=== PATIENT | female | born 1980 | race American Indian/Alaskan Native ===

== ENCOUNTER 2021-01-20 13:55 | Outpatient (CLI) | payer MEDICAID ==
--- NOTE | 2021-01-22 10:18 | Magnetic Resonance Report ---
MRI BREAST BILATERAL WITH AND WITHOUT CONTRAST, 01/20/2021 CLINICAL INFORMATION / INDICATION: MALIGNANT NEOPLASM OF UPPER OUTER QUAD OF LT BREAST. TECHNIQUE: Axial T1 and T2-weighted fat sat images were obtained precontrast. Gadolinium-based contra st was injected intravenously and serial axial T1 weighted images with fat saturation were obtained. 3-D MIP projections, kinetic analysis, and subtraction imaging were utilized to evaluate. A dedicated 8-channel breast coil was used for image acquisition. COMPARISON: Diagnostic left tomograms from 12/29/2020 and 12/03/2019 FINDINGS: BREAST DENSITY: Heterogeneously dense. BACKGROUND ENHANCEMENT: High level background enhancement within both breasts. RIGHT BREAST: No dominant mass or suspicious area of enhancement in the right breast. LEFT BREAST: Suspicious enhancement is noted anteriorly along the left breast in the upper outer quad rant at the site of previous biopsy and the previously seen suspicious calcifications. The area of qu estionable enhancement measures 7.2 x 6.9 mm in this location on image 508 of the axial postcontrast series. The enhancement is located 2.7 cm from the nipple, 9.2 cm from the chest wall and 1.7 cm from the nearest skin surface, located laterally. A previously biopsied mass located anteriorly along the left breast in the 7:00 position also suspiciously enhances and measures 1.0 x 1.0 cm on image 448 o f the postcontrast axial series. The mass is located 9.3 cm from the chest wall, 1.2 cm from the nipp le and 1.4 cm from the nearest skin surface, located medially. No other mass or suspicious area of en hancement is identified. AXILLAE: No pathologically enlarged axillary lymph nodes. ADDITIONAL FINDINGS: Limited imaging of the thorax and upper abdomen demonstrates no focal abnormalit y. IMPRESSION: 1. MRI evidence of multifocal, multicentric left breast cancer as above. Please correlate with the pa thology reports from the previously performed biopsies. 2. No MRI evidence of malignancy in the right breast. Follow up recommendation: Surgical consult BI-RADS Category 6: Known Biopsy-Proven Malignancy. Signer Name: Chadwick Leigh MD Signed: 01/22/2021 10:14 AM Workstation Name: [facility]
== END 2021-01-20 13:56 | disposition home or self-care (01) ==
LOC: SPVIMAG 13:55
PROVIDERS: ATTEND Surgery
DX: C50.412 Malignant neoplasm of upper-outer quadrant of left female breast (principal)
CPT/HCPCS: A9575; C8908; 77049

== ENCOUNTER 2021-02-13 06:59 | Day surgery (SDC) | payer MEDICAID ==
[2021-02-03 10:56] LABS: Hematocrit 35.6 % (30.3-42.9); Hemoglobin 12.2 gm/dl (10.1-14.3); Mean Corpuscular HGB Conc 34 % (30-34); Mean Corpuscular Volume 79 fl (79-97); Platelet Count 304 K/mm3 (140-440); Red Cell Distribution Width 15.1 % (13.2-15.2)
--- NOTE | 2021-02-03 12:35 | Anesthesia Consultation ---
Anesthesia Consult and Med Hx Date of service: 02/13/21 - Airway Anesthetic Teeth Evaluation: Good ROM Head & Neck: Adequate Mental/Hyoid Distance: Adequate Mallampati Class: Class II Intubation Access Assessment: Good - Pre-Operative Health Status ASA Pre-Surgery Classification: ASA3 Proposed Anesthetic Plan: General Nerve Block: ES/PECS - Pulmonary Hx Respiratory Symptoms: No (+2FS) - Central Nervous System Hx Seizures: Yes (Last one a month ago) - Hematic Hx Sickle Cell Disease: No - Other Systems Hx Alcohol Use: No Hx Substance Use: No Hx Cancer: Yes (Left breast) - Additional Comments Anesthesia Medical History Comments: Jehova's Witness-no blood. Mother present
[~2021-02-13 06:59] MED LIST: ACETAMINOPHEN 500 MG TAB PO SCH; CELECOXIB 200 MG CAP PO NR; GABAPENTIN 300 MG CAP PO NR; LACTATED RINGERS 1,000 ML IV SCH; MIDAZOLAM 2 MG/2 ML INJ IV NR; SCOPOLAMINE TRANSDERMAL PATCH 72 HR TD NR; ceFAZolin/STERILE WATER 2 GM/20 ML SYRINGE IV NR; fentaNYL 100 MCG/2 ML INJ IV PRN
--- NOTE | 2021-02-13 07:23 | Anesthesia Day of Surgery ---
Anesthesia Day of Surgery - Day of Surgery Patient Examined: Yes Patient H&P Reviewed: Yes Patient is NPO: Yes
[2021-02-13] MEDS ORDERED: dexAMETHasone 4 MG/ML VIAL ONE (07:37)
[2021-02-13] MEDS ORDERED: BUPIVACAINE-EPINEPHRINE/PF 0.25%-1:200,000 (30 ML) VIAL INFILTRATI ONE (07:37)
[2021-02-13] MEDS ORDERED: LIDOCAINE (1%) 10 MG/1 ML VIAL 20 ML MDV ONE (07:37)
[2021-02-13] MEDS ORDERED: oxyCODONE /ACETAMINOPHEN 5-325MG TAB PO PRN (08:00)
[2021-02-13] MEDS ORDERED: ONDANSETRON 4 MG/2 ML INJ IV PRN (08:00)
[2021-02-13] MEDS ORDERED: propofoL 200 MG/20 ML VIAL IV ONE ×2 (08:21→10:42)
--- NOTE | 2021-02-13 08:47 | Mammography Report ---
MAMMOGRAPHIC GUIDED LEFT BREAST NEEDLE LOCALIZATION, 02/13/2021 CLINICAL INFORMATION / INDICATION: DCIS. COMPARISON: 12/29/2020 PROCEDURE: Risks, benefits and indications to the procedure were discussed with the patient. The patient agreed to proceed with both verbal and written consent. A timeout procedure was performed with 2 patient radha ntifiers. The breast was prepped with betadine in the usual sterile fashion. Approximately 5 cc of Lidocaine 1% was used for local anesthesia. Under direct digital mammographic guidance, a localization wire was p laced in satisfactory position with distal tip traversing the targeted lesion. Post-biopsy mammogram confirms satisfactory positioning of the localization wire. The wire was secured to the skin with a s terile dressing. The patient tolerated procedure without difficulty. No complications were encountered. IMPRESSION: 1. Satisfactory mammographic guided wire localization of the left breast. Signer Name: Yves Goodman Jr, MD Signed: 02/13/2021 8:43 AM Workstation Name: [id number]
[2021-02-13] MEDS ORDERED: ceFAZolin 1 GM VIAL ONE (10:02)
[2021-02-13] MEDS ORDERED: WATER FOR IRRIG STERILE 1,500 ML BOTTLE IR ONE (10:19)
[2021-02-13] MEDS ORDERED: ONDANSETRON 4 MG/2 ML INJ ONE (10:36)
[2021-02-13] MEDS ORDERED: dexAMETHasone 20 MG/5 ML VIAL ONE (10:37)
[2021-02-13] MEDS ORDERED: LIDOCAINE MPF (2%) 20 MG/1 ML VIAL 5 ML ONE (10:37)
[2021-02-13] MEDS ORDERED: GLYCOPYRROLATE 0.4 MG/2 ML INJ ONE (10:40)
[2021-02-13] MEDS ORDERED: NEOSTIGMINE 10MG/10 ML INJ MDV ONE (10:40)
--- NOTE | 2021-02-13 10:59 | Short Stay Summary ---
Short Stay Documentation Date of service: 02/13/21 - History H&P: obtained from office - Allergies and Medications Current Medications: Allergies No Known Allergies Allergy (Verified 02/02/21 13:07) Home Medications Medication Instructions Recorded Confirmed Last Taken Type Brivaracetam [Briviact] 100 mg PO BID 02/02/21 02/02/21 02/13/21 04:30 History Lacosamide [Vimpat] 200 mg PO BID 02/02/21 02/02/21 02/13/21 04:30 History Ibuprofen [Motrin 800 MG tab] 800 mg PO Q8HR PRN #12 tablet 02/13/21 Unknown Rx Active Medications Acetaminophen (Acetaminophen 500 Mg Tab) 1,000 mg PO PREOP EDENILSON Stop: 02/13/21 21:00 Last Admin: 02/13/21 09:00 Dose: 1,000 mg Documented by: Cefazolin Sodium (Cefazolin/Sterile Water 2 Gm/20 Ml Syringe) 2 gm IV PREOP NR Stop: 02/13/21 23:00 Celecoxib (Celecoxib 200 Mg Cap) 200 mg PO PREOP NR Stop: 02/13/21 21:00 Last Admin: 02/13/21 09:00 Dose: 200 mg Documented by: Fentanyl (Fentanyl 100 Mcg/2 Ml Inj) 100 mcg IV ONCE PRN PRN Reason: sedation for nerve block Stop: 02/13/21 21:00 Last Admin: 02/13/21 09:13 Dose: 100 mcg Documented by: Fentanyl (Fentanyl 100 Mcg/2 Ml Inj) 50 mcg IV Q5MIN PRN PRN Reason: Pain , Severe (7-10) Stop: 02/13/21 18:00 Gabapentin (Gabapentin 300 Mg Cap) 300 mg PO PREOP NR Stop: 02/13/21 21:00 Last Admin: 02/13/21 09:00 Dose: 300 mg Documented by: Lactated Ringer's (Lactated Ringers) 1,000 mls @ 100 mls/hr IV DIRECT EDENILSON Stop: 02/13/21 23:59 Last Admin: 02/13/21 09:10 Dose: 100 mls/hr Documented by: Midazolam HCl (Midazolam 2 Mg/2 Ml Inj) 2 mg IV PREOP NR Stop: 02/13/21 21:00 Last Admin: 02/13/21 09:13 Dose: 2 mg Documented by: Ondansetron HCl (Ondansetron 4 Mg/2 Ml Inj) 4 mg IV ONCE PRN PRN Reason: Nausea And Vomiting Stop: 02/13/21 18:00 Oxycodone/Acetaminophen (Oxycodone /Acetaminophen 5-325mg Tab) 1 tab PO ONCE PRN PRN Reason: Pain, Moderate (4-6) Stop: 02/13/21 18:00 Scopolamine (Scopolamine Transdermal Patch 72 Hr) 1 each TD PREOP NR Stop: 02/13/21 21:00 Last Admin: 02/13/21 09:00 Dose: 1 each Documented by: - Brief post op/procedure progress note Date of procedure: 02/13/21 Pre-op diagnosis: Left breast cancer upper outer quadrant Post-op diagnosis: same Procedure: Left needle localization partial mastectomy of the UOQ Anesthesia: GETA Findings: wire and clip present Surgeon: EMMA SAMPSON Estimated blood loss: minimal Pathology: list Specimen disposition: to lab Condition: stable - Disposition Condition at discharge: Good Disposition: DC-01 TO HOME OR SELFCARE Short Stay Discharge Plan Activity: other (no heavy lifting) Diet: regular Wound: keep clean and dry (wear breast binder; may showerin 48 hours; no baths, pools or lakes) Follow up with: EMMA SAMPSON MD [Staff Physician] - 7 Days Prescriptions: Ibuprofen [Motrin 800 MG tab] 800 mg PO Q8HR PRN #12 tablet PRN Reason: Pain , Severe (7-10)
--- NOTE | 2021-02-13 11:05 | Operative Report ---
Operative Report Operative Report: Operative Report: February 13, 2021 Preoperative diagnosis: Left breast cancer of the upper outer quadrant Postoperative diagnosis: Same Procedure: Left breast needle localization partial mastectomy of the upper outer quadrant Surgeon: Kay Brenner MD Anesthesia: General Findings: Left wire and clip present within radiograph specimen Complications: None EBL: Minimal Disposition: PACU in good condition Indications for operative procedure: This is a 40 year old lady with newly diagnosed left breast cancer of the upper outer quadrant, intermediate grade DCIS, Stage 0 [id number] ER/ND positive. Recommendations are to proceed with breast conservation. Radiology to place wire at location of known cancer. She understands the role of adjuvant radiation therapy and anti-hormonal therapy. She wished to proceed with the above procedure. Procedure in detail: The patient was taken to radiology for wire placement for localization known area of cancer. Anesthesia placed left pectoral block. Patient was then taken to the operating room. Gen. anesthesia was administered. Left breast and axilla were prepped and draped in the normal sterile operative fashion. The wire was identified. Timeout was performed. Attention was then taken towards the left breast. A periareolar breast incision around 2:00 position was made with a 15 blade knife and dissection taken down to subcutaneous tissues. First began raising of the lateral flap with removal of the wire from the skin with dissection taken laterally past the area of known malignancy and then taken down to the pectoralis muscle, followed by raising of the inferior flap, superior flap and medial flap with all flaps taken past the area of known malignancy and then posteriorly down to the pectoralis muscle. The breast area of concern was appropriately removed posteriorly from the pectoralis muscle with the aid of the Bovie cautery. The wire was not encountered. Specimen was marked and then sent to pathology and radiology; radiograph specimen with wire and clip present. Breast cavity was irrigated and hemostasis was obtained. Then proceeded with closure. The posterior deep breast tissues were approximated and closed using interrupted 3-0 Vicryl. The subcutaneous tissues were then approximated and closed using interrupted 3-0 Vicryl followed by closing of the skin with a running 4-0 Monocryl and dermabond. The patient tolerated surgery very well and she was awaken from anesthesia without any complication and transported to PACU in good condition.
[2021-02-13] MEDS: fentaNYL 100 MCG/2 ML INJ IV PRN ×2 (11:17→11:29)
--- NOTE | 2021-02-13 11:25 | Mammography Report ---
LEFT BREAST SPECIMEN RADIOGRAPH, 02/13/2021 INDICATION: Left breast target lesion: Biopsy clip and pleomorphic calcifications. COMPARISON: Needle localization performed earlier today FINDINGS: The previously localized target lesion is present in its entirety in the submitted specimen. The surg ical clip and the cluster of microcalcifications are seen in the specimen. The localization wire is present. IMPRESSION: 1. Radiographic evidence of satisfactory excision of the target lesion. Signer Name: Yves Goodman Jr, MD Signed: 02/13/2021 11:20 AM Workstation Name: [id number]
[2021-02-13 12:04] VITALS: BP 130/82
--- NOTE | 2021-02-13 13:11 | Post Anesthesia Evaluation ---
- Post Anesthesia Evaluation Patient Participated: Yes Airway Patent: Yes Stable Respiratory Function: Yes Nausea/Vomiting: No Temp > 96.8F: Yes Pain Manageable: Yes Adequeate Hydration: Yes Anesthesia Complications: No
== END 2021-02-13 12:20 | disposition home or self-care (01) ==
LOC: OR 06:59
PROVIDERS: ATTEND Surgery
DX: C50.412 Malignant neoplasm of upper-outer quadrant of left female breast (principal); Z20.822 Contact with and (suspected) exposure to COVID-19; G40.909 Epilepsy, unspecified, not intractable, without status epilepticus; M19.90 Unspecified osteoarthritis, unspecified site; Z79.899 Other long term (current) drug therapy; Z98.890 Other specified postprocedural states
CPT/HCPCS: 19281; 19301; 36415; 64450; 76098; 81025; 85027; 88307; 88342; A4648; J0690; J1100; J2250; J2405; J2704; J2710; J3010; J7120; U0003

== ENCOUNTER 2021-03-02 06:21 | Day surgery (SDC) | payer MEDICAID ==
[~2021-03-02 06:21] MED LIST changes: -ACETAMINOPHEN 500 MG TAB PO SCH; -CELECOXIB 200 MG CAP PO NR; -GABAPENTIN 300 MG CAP PO NR; -LACTATED RINGERS 1,000 ML IV SCH; -MIDAZOLAM 2 MG/2 ML INJ IV NR; -SCOPOLAMINE TRANSDERMAL PATCH 72 HR TD NR; -fentaNYL 100 MCG/2 ML INJ IV PRN
[2021-03-02] MEDS ORDERED: LACTATED RINGERS 1,000 ML IV SCH (07:00)
[2021-03-02] MEDS ORDERED: BACTERIOSTATIC SODIUM CHLORIDE 0.9% 30 ML VIAL INFILTRATI ONE (07:06)
[2021-03-02] MEDS ORDERED: LIDOCAINE (1%) 10 MG/1 ML VIAL 20 ML MDV ONE (07:22)
[2021-03-02] MEDS ORDERED: BUPIVACAINE/PF (0.25%) 2.5 MG/ML 30 ML VIAL INFILTRATI ONE ×2 (07:23→09:14)
[2021-03-02] MEDS ORDERED: ONDANSETRON 4 MG/2 ML INJ IV PRN (07:25)
[2021-03-02] MEDS ORDERED: ACETAMINOPHEN 500 MG TAB PO NR (07:25)
[2021-03-02] MEDS ORDERED: MAGNESIUM OXIDE 400 MG TAB PO NR (07:25)
[2021-03-02] MEDS ORDERED: HYDROmorphone 1 MG/1 ML INJ IV PRN ×2 (07:25)
[2021-03-02] MEDS ORDERED: LIDOCAINE MPF (2%) 20 MG/1 ML VIAL 5 ML ONE (07:27)
[2021-03-02] MEDS ORDERED: fentaNYL 100 MCG/2 ML INJ ONE (07:27)
[2021-03-02] MEDS ORDERED: propofoL 200 MG/20 ML VIAL IV ONE (07:28)
--- NOTE | 2021-03-02 07:28 | Anesthesia Day of Surgery ---
Anesthesia Day of Surgery - Day of Surgery Patient Examined: Yes Patient H&P Reviewed: Yes Patient is NPO: Yes
--- NOTE | 2021-03-02 07:29 | Anesthesia Consultation ---
Anesthesia Consult and Med Hx Date of service: 03/02/21 - Airway Anesthetic Teeth Evaluation: Good ROM Head & Neck: Adequate Mental/Hyoid Distance: Adequate Mallampati Class: Class II Intubation Access Assessment: Probably Good - Pre-Operative Health Status ASA Pre-Surgery Classification: ASA3 Proposed Anesthetic Plan: General - Pulmonary Hx Smoking: Yes (FORMER SMOKER) Hx Respiratory Symptoms: No (+2FS) - Central Nervous System Hx Seizures: Yes (LAST SEIZURE DECEMBER 2020) Hx Psychiatric Problems: No - Hematic Hx Sickle Cell Disease: No - Other Systems Hx Alcohol Use: Yes (OCCASIONALLY) Hx Substance Use: No Hx Cancer: No Hx Obesity: Yes - Additional Comments Anesthesia Medical History Comments: Here [id number]
[2021-03-02] MEDS ORDERED: MIDAZOLAM 2 MG/2 ML INJ IV NR (08:00)
[2021-03-02] MEDS ORDERED: CELECOXIB 200 MG CAP PO NR (08:00)
[2021-03-02] MEDS ORDERED: WATER FOR IRRIG STERILE 1,500 ML BOTTLE IR ONE (09:14)
[2021-03-02] MEDS ORDERED: LIDOCAINE (1%) 10 MG/1 ML VIAL 20 ML MDV INFILTRATI ONE (09:14)
[2021-03-02] MEDS ORDERED: PHENYLEPHRINE/NS 1,000 MCG/10 ML SYRINGE (OR USE) IV ONE (10:15)
[2021-03-02] MEDS ORDERED: ONDANSETRON 4 MG/2 ML INJ ONE (10:15)
--- NOTE | 2021-03-02 10:26 | Short Stay Summary ---
Short Stay Documentation Date of service: 03/02/21 - History H&P: obtained from office - Allergies and Medications Current Medications: Allergies No Known Allergies Allergy (Verified 02/19/21 11:31) Home Medications Medication Instructions Recorded Confirmed Last Taken Type Brivaracetam [Briviact] 100 mg PO BID 02/02/21 02/19/21 03/02/21 04:00 History Lacosamide [Vimpat] 200 mg PO BID 02/02/21 02/19/21 03/02/21 04:00 History Ibuprofen [Motrin 800 MG tab] 800 mg PO Q8HR PRN #10 tablet 03/02/21 Unknown Rx cephALEXin [Keflex] 500 mg PO Q12HR #14 cap 03/02/21 Unknown Rx Active Medications Cefazolin Sodium (Cefazolin/Sterile Water 2 Gm/20 Ml Syringe) 2 gm IV PREOP NR Stop: 03/02/21 18:00 Hydromorphone HCl (Hydromorphone 1 Mg/1 Ml Inj) 0.25 mg IV Q10MIN PRN PRN Reason: Pain, Moderate (4-6) Stop: 03/02/21 23:00 Hydromorphone HCl (Hydromorphone 1 Mg/1 Ml Inj) 0.5 mg IV Q10MIN PRN PRN Reason: Pain , Severe (7-10) Stop: 03/02/21 23:00 Lactated Ringer's (Lactated Ringers) 1,000 mls @ 100 mls/hr IV DIRECT EDENILSON Last Admin: 03/02/21 07:10 Dose: 100 mls/hr Documented by: Midazolam HCl (Midazolam 2 Mg/2 Ml Inj) 2 mg IV PREOP NR Stop: 03/02/21 23:59 Last Admin: 03/02/21 07:47 Dose: 2 mg Documented by: - Brief post op/procedure progress note Date of procedure: 03/02/21 Pre-op diagnosis: Left breast cancer upper outer quadrant Post-op diagnosis: same Procedure: Left breast cancer lateral margin revision Anesthesia: GETA Findings: Lateral margin revision and posterior margin revision of tissue adjacent to lateral margin Surgeon: EMMA SAMPSON Estimated blood loss: minimal Pathology: list (lateral margin revision) Specimen disposition: to lab Condition: stable - Disposition Condition at discharge: Good Disposition: DC-01 TO HOME OR SELFCARE Short Stay Discharge Plan Activity: other (no heavy lifting) Diet: regular Wound: keep clean and dry (wear breast binder; may shower in 48 hours; no baths, pools or lakes; do not remove steristrips) Follow up with: EMMA SAMPSON MD [Staff Physician] - 7 Days Prescriptions: cephALEXin [Keflex] 500 mg PO Q12HR #14 cap Ibuprofen [Motrin 800 MG tab] 800 mg PO Q8HR PRN #10 tablet PRN Reason: Pain , Severe (7-10)
--- NOTE | 2021-03-02 10:37 | Operative Report ---
Operative Report Operative Report: Operative Report: Date of Service: March 02, 2021 Preoperative diagnosis: Left breast cancer of the upper outer quadrant with close lateral margin Postoperative diagnosis:Same Procedure: Left breast lateral margin revision Surgeon: Kay Brenner MD Anesthesia: General Findings: Lateral margin revision Complications: None EBL: Minimal Drains: None Disposition: PACU in good condition Indications for operative procedure: This is a 40 year old lady with newly diagnosed Stage 0 left breast cancer of the upper outer quadrant, [id number] ER/SC positive. She recently underwent a left partial mastecomy with findings of close lateral margin of 1 mm and recommendations for lateral margin revision. Posterior margin 0.2 mm and dissection was taken to pectoralis muslce. Recommendations were to proceed with lateral margin revision. Patient wished to proceed with the above procedure. She understands the role of adjuvant radiation therapy. Procedure in detail: The patient was taken to the operating room and was placed supine. General anesthesia was administered. The left breast was prepped and draped in the normal sterile operative fashion. Timeout was performed. Skin incision was made through the prior breast incision with a 15 blade knife at 3:00 periareolar breast incision. Subcutaneous tissues were opened with the aid of the Bovie cautery and knife. Small seroma cavity was encountered and suctioned. Hemostasis was noted. The area of revision was grasped with an Juanita clamp and the lateral margin was then revised using the Bovie cautery. Specimen was marked and sent to pathology. Posterior tissue adjacent to lateral revised margin was removed as well with dissection taken down to muscle. Hemostasis was obtained with the Bovie cautery. Breast cavity was anesthetized with 1% lidocaine mixed with quarter percent Marcaine. Then proceeded with complex closure. The deep breast tissue was approximated and closed using interrupted 3- 0 Vicryl and skin brought together and closed using a running 4-0 Monocryl followed by dermabond. She tolerated surgery very well and was awaken from anesthesia without any complications and transported to PACU in good condition.
[2021-03-02 11:12] VITALS: BP 140/81
--- NOTE | 2021-03-02 19:59 | Post Anesthesia Evaluation ---
- Post Anesthesia Evaluation Patient Participated: Yes Airway Patent: Yes Stable Respiratory Function: Yes Nausea/Vomiting: No Temp > 96.8F: Yes Pain Manageable: Yes Adequeate Hydration: Yes Anesthesia Complications: No Block Receding Appropriately: Not Applicable Patient on Ventilator: No
== END 2021-03-02 11:55 | disposition home or self-care (01) ==
LOC: OR 06:21
PROVIDERS: ATTEND Surgery
DX: C50.412 Malignant neoplasm of upper-outer quadrant of left female breast (principal); Z20.822 Contact with and (suspected) exposure to COVID-19; G40.909 Epilepsy, unspecified, not intractable, without status epilepticus; E66.9 Obesity, unspecified; M19.90 Unspecified osteoarthritis, unspecified site; Z98.890 Other specified postprocedural states; Z79.899 Other long term (current) drug therapy; Z87.891 Personal history of nicotine dependence; Z72.89 Other problems related to lifestyle; Z68.41 Body mass index [BMI] 40.0-44.9, adult
CPT/HCPCS: 19301; 81025; 88307; J0690; J1170; J2250; J2370; J2405; J2704; J3010; J7120; U0003